=== PATIENT | male | born 2005 | race African-American/Black ===

== ENCOUNTER 2025-01-30 21:28 | Emergency (ER) | payer OTHER, BC, MEDICAID, SELFPAY ==
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
--- NOTE | ~2025-01-30 | XR_ITS ---
Examination: XR chest 2V Clinical History: ribcage pain Comparison: None Technique: PA and Lateral Findings: Cardiomediastinal silhouette normal size and configuration. Lungs clear. No acute bony abnormality. IMPRESSION: 1. No acute cardiopulmonary findings. Reviewed, dictated and finalized at location R.
--- NOTE | ~2025-01-30 | XR_ITS ---
EXAMINATION: XR hip LT 2V w AP pelvis, 01/30/2025 22:05 CDT HISTORY: L hip pain COMPARISON: No comparisons available. Findings: No acute fracture or malalignment. No significant degenerative changes. Soft tissues unremarkable. Impression: No acute fracture or malalignment. Reviewed, dictated and finalized at location A. Impression: No acute fracture or malalignment.
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
[2025-01-30 21:35] VITALS: BP 124/80; PULSE 78; RESP 15; TEMP 36.9; O2SAT 100
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
[2025-01-30] MEDS: HYDROcodone/acetaminophen (*CRX) 5-325 MG TABLET 1 TAB PO (22:24)
[2025-01-30 22:27] VITALS: BP 115/72; PULSE 70; RESP 12; O2SAT 100
--- NOTE | 2025-01-30 23:14 | PC.NURSE ---
Report received from BRISEIDA Fisher. Assumed care of patient at this time.
[2025-01-30 23:25] VITALS: BP 122/68; PULSE 64; RESP 18; O2SAT 100
[2025-01-30] MEDS: CYCLOBENZAPRINE HCL 10 MG TABLET PO (23:27)
== END 2025-01-30 23:33 | disposition home or self-care (01) ==
PROVIDERS: Emergency Provider Registered Nurse
DX: S06.0X0A Concussion without loss of consciousness, initial encounter (principal); S39.012A Strain of muscle, fascia and tendon of lower back, initial encounter; S29.012A Strain of muscle and tendon of back wall of thorax, initial encounter; V49.40XA Driver injured in collision with unspecified motor vehicles in traffic accident, initial encounter
CPT/HCPCS: 70450; 71046; 72125; 72128; 72131; 73502; 99284; A9270